=== PATIENT | female | born 1990 | race African-American/Black ===

== ENCOUNTER 2017-09-25 13:33 | Inpatient (IN) | payer SELFPAY ==
[~2017-09-25] VITALS: Ht 170.2 cm; Wt 127.0 kg
[2017-09-25] MEDS ORDERED: KETOROLAC 30MG/ML VIAL IV STA (14:39)
[2017-09-25] MEDS ORDERED: SODIUM CHLORIDE 0.9% 1,000 ML IV ONE (14:39)
[2017-09-25 15:30] LABS: HEMATOCRIT. 40.1 % (36.0-48.0); HEMOGLOBIN. 13.5 g/dL (12.0-16.0); MEAN CORPUSCULAR HEMOGLOBIN 29.1 pg (28.0-32.0); MEAN CORPUSCULAR VOLUME 86.3 fL (81.0-99.0); MEAN PLATELET VOLUME 11.4 fl (7.4-10.4); PLATELET 173 x1000/uL (130-400); RED BLOOD CELL COUNT 4.64 mill/uL (4.2-5.4); RED CELL DISTRIBUTION WIDTH 14.2 % (11.6-14.6)
[2017-09-25 15:34] LABS: CHLORIDE 100 mEq/L (98-107)
[2017-09-25 15:39] LABS: D-DIMER 1.34 mg/L FEU (<0.50); INR 1.3; PARTIAL THROMBOPLASTIN TIME 31.2 sec (23.4-31.0)
[2017-09-25 15:44] LABS: HCG SCREEN NEGATIVE
[2017-09-25 15:54] LABS: CLARITY URINE CLEAR (CLEAR); COLOR URINE YELLOW (YELLOW); KETONES URINE NEGATIVE (NEGATIVE); LEUKOCYTE ESTERASE URINE TRACE (NEGATIVE); NITRITE URINE NEGATIVE (NEGATIVE); OCCULT BLOOD URINE TRACE (NEGATIVE); PROTEIN URINE NEGATIVE (NEGATIVE); SPECIFIC GRAVITY URINE 1.003 (1.005-1.030)
[2017-09-25 16:30] LABS: PLATELET ESTIMATE NORMAL
[2017-09-25] MEDS ORDERED: KCL 10MEQ/50ML PREMIX 50 ML IV ONE (17:00)
[2017-09-25] MEDS ORDERED: SODIUM CHLORIDE 0.9% 1000ML BAG (SEPSIS BOLUS) IV ONE (19:30)
[2017-09-25] MEDS ORDERED: IOHEXOL-350 100 ML BOTTLE ONE (19:48)
[2017-09-25] MEDS ORDERED: MORPHINE SULFATE 4 MG/ML CPJ (NOT FOR IM USE) IV STA (21:47)
[2017-09-25] MEDS ORDERED: ONDANSETRON HCL 4MG/2ML VIAL IV STA (21:47)
[2017-09-26] VITALS: BP 114/63
[2017-09-26 00:32] VITALS: BP 114/63
[2017-09-26] MEDS ORDERED: ACETAMINOPHEN 325MG TABLET PO PRN (01:15)
[2017-09-26] MEDS ORDERED: HYDROCODONE/ACETAMINOPHEN 5/325MG TABLET PO PRN (01:15)
[2017-09-26] MEDS ORDERED: ONDANSETRON HCL 4MG/2ML VIAL IV PRN (01:15)
[2017-09-26] MEDS: DEXT 5%/0.45% NACL 1000ML 1,000 ML IV SCH ×2 (03:44→14:39)
[2017-09-26 04:00] VITALS: BP 128/84
[2017-09-26] MEDS ORDERED: OMEPRAZOLE 20MG CAPSULE EXTENDED RELEASE PO SCH (07:40)
[2017-09-26 08:00] VITALS: BP 100/70
[2017-09-26 10:26] LABS: *BARBITURATES SCREEN URINE NEGATIVE (NEGATIVE); OPIATES URINE SCREEN NEGATIVE (NEGATIVE)
[2017-09-26 10:27] LABS: *BENZODIAZEPINES SCREEN URINE NEGATIVE (NEGATIVE); *COCAINE SCREEN URINE NEGATIVE (NEGATIVE); PHENCYCLIDINE URINE SCREEN NEGATIVE (NEGATIVE)
[2017-09-26 10:30] LABS: *AMPHETAMINES SCREEN URINE NEGATIVE (NEGATIVE)
[2017-09-26 10:42] LABS: METHADONE URINE SCREEN NEGATIVE (NEGATIVE)
[2017-09-26 10:44] LABS: CANNABINOID URINE SCREEN PRESUMTIVE POSITIVE (NEGATIVE)
[2017-09-26 11:34] LABS: HEMATOCRIT 38.4 % (36.0-48.0); HEMOGLOBIN 12.6 g/dL (12.0-16.0); MEAN CORPUSCULAR HEMOGLOBIN 28.6 pg (28.0-32.0); MEAN CORPUSCULAR VOLUME 87.4 fL (81.0-99.0); PLATELET 165 x1000/uL (130-400); RED CELL DISTRIBUTION WIDTH 14.3 % (11.6-14.6)
[2017-09-26 11:53] LABS: CHLORIDE 103 mEq/L (98-107)
[2017-09-26 12:00] VITALS: BP 127/86
[2017-09-26 12:01] LABS: CREATINE KINASE 106 IU/L (26-192)
[2017-09-26 16:00] VITALS: BP 126/78
[2017-09-26 16:29] LABS: BASOPHILS % 0.5 % (0.0-2.0); EOSINOPHILS % 1.3 % (0.0-5.0); HEMATOCRIT. 37.2 % (36.0-48.0); HEMOGLOBIN. 12.2 g/dL (12.0-16.0); LYMPHOCYTES % 11.7 % (20.0-50.0); MEAN CORPUSCULAR HEMOGLOBIN 28.7 pg (28.0-32.0); MEAN CORPUSCULAR VOLUME 87.3 fL (81.0-99.0); MONOCYTES % 4.3 % (2.0-8.0); NEUTROPHILS % 82.2 % (40.0-76.0); PLATELET 163 x1000/uL (130-400); RED BLOOD CELL COUNT 4.26 mill/uL (4.2-5.4); RED CELL DISTRIBUTION WIDTH 14.3 % (11.6-14.6)
[2017-09-26 16:47] LABS: CHLORIDE 104 mEq/L (98-107)
== END 2017-09-26 17:45 | disposition left against medical advice (07) | DRG 253 ==
LOC: ER 13:33 → 7WST 21:56 → ENRESERV 21:56
PROVIDERS: ADMIT Family Medicine Adult Medicine; ATTEND Family Medicine Adult Medicine
DX: K62.5 Hemorrhage of anus and rectum (principal); E86.0 Dehydration; D72.829 Elevated white blood cell count, unspecified; F17.200 Nicotine dependence, unspecified, uncomplicated; K52.9 Noninfective gastroenteritis and colitis, unspecified; Z79.899 Other long term (current) drug therapy
CPT/HCPCS: 36415; 71045; 71275; 74174; 76700; 76705; 80048; 80053; 80305; 81003; 82550; 83605; 83690; 84484; 84703; 85025; 85027; 85379; 85610; 85730; 87040; 87086; 93005; 96361; 96365; 96375; 99285; J1885; J2270; J2405; J3480; J3490; J7030; Q9967

== ENCOUNTER 2017-09-28 12:54 | Emergency (ER) | payer SELFPAY ==
[~2017-09-28] VITALS: Ht 170.2 cm; Wt 118.0 kg
[2017-09-28 14:18] LABS: BASOPHILS % 0.8 % (0.0-2.0); EOSINOPHILS % 1.3 % (0.0-5.0); HEMATOCRIT. 35.8 % (36.0-48.0); HEMOGLOBIN. 12.2 g/dL (12.0-16.0); LYMPHOCYTES % 29.9 % (20.0-50.0); MEAN CORPUSCULAR HEMOGLOBIN 29.4 pg (28.0-32.0); MEAN CORPUSCULAR VOLUME 86.4 fL (81.0-99.0); MEAN PLATELET VOLUME 9.4 fl (7.4-10.4); MONOCYTES % 8.8 % (2.0-8.0); NEUTROPHILS % 59.2 % (40.0-76.0); PLATELET 233 x1000/uL (130-400); RED BLOOD CELL COUNT 4.14 mill/uL (4.2-5.4); RED CELL DISTRIBUTION WIDTH 14.1 % (11.6-14.6)
[2017-09-28 14:25] LABS: CHLORIDE 104 mEq/L (98-107); PROTHROMBIN TIME 10.5 sec (9.4-11.6)
[2017-09-28 14:34] LABS: HCG SCREEN NEGATIVE
[2017-09-28 14:58] LABS: CLARITY URINE CLOUDY (CLEAR); COLOR URINE RED (YELLOW); KETONES URINE TRACE (NEGATIVE); LEUKOCYTE ESTERASE URINE 3+ (NEGATIVE); NITRITE URINE NEGATIVE (NEGATIVE); OCCULT BLOOD URINE 3+ (NEGATIVE); PH URINE 7.5 (4.5-8.0); PROTEIN URINE 1+ (NEGATIVE); SPECIFIC GRAVITY URINE 1.014 (1.005-1.030)
[2017-09-28 15:11] LABS: *AMPHETAMINES SCREEN URINE NEGATIVE (NEGATIVE); *BARBITURATES SCREEN URINE NEGATIVE (NEGATIVE)
[2017-09-28 15:12] LABS: *BENZODIAZEPINES SCREEN URINE NEGATIVE (NEGATIVE); *COCAINE SCREEN URINE NEGATIVE (NEGATIVE); METHADONE URINE SCREEN NEGATIVE (NEGATIVE); OPIATES URINE SCREEN NEGATIVE (NEGATIVE); PHENCYCLIDINE URINE SCREEN NEGATIVE (NEGATIVE)
[2017-09-28 15:15] LABS: CANNABINOID URINE SCREEN PRESUMTIVE POSITIVE (NEGATIVE)
[2017-09-28 15:49] VITALS: BP 129/66
== END 2017-09-28 16:39 | disposition home or self-care (01) ==
LOC: ER 13:04
DX: N39.0 Urinary tract infection, site not specified (principal); N93.9 Abnormal uterine and vaginal bleeding, unspecified; S30.1XXA Contusion of abdominal wall, initial encounter; F17.200 Nicotine dependence, unspecified, uncomplicated; F12.10 Cannabis abuse, uncomplicated; X58.XXXA Exposure to other specified factors, initial encounter; Y93.89 Activity, other specified; Y92.89 Other specified places as the place of occurrence of the external cause; Y99.8 Other external cause status
CPT/HCPCS: 36415; 74176; 80053; 80305; 81003; 83690; 84703; 85025; 85610; 99285; Z7610

== ENCOUNTER 2018-01-26 00:31 | Emergency (ER) | payer MEDICAID, OTHER ==
[~2018-01-26] VITALS: Ht 170.2 cm; Wt 118.0 kg
[2018-01-26 06:10] VITALS: BP 150/78
== END 2018-01-26 10:00 | disposition left against medical advice (07) ==
LOC: ER 08:11
DX: Z53.21 Procedure and treatment not carried out due to patient leaving prior to being seen by health care provider (principal); F17.200 Nicotine dependence, unspecified, uncomplicated
CPT/HCPCS: 99281